=== PATIENT | female | born 1995 | race Caucasian/White ===

== ENCOUNTER 2017-09-01 14:20 | Emergency (ER) | payer SELFPAY ==
[2017-09-01] MEDS ORDERED: ALPRAZolam 0.25 MG TABLET PO ONE (14:45)
--- NOTE | 2017-09-01 15:11 | PHYS DOC ---
Past History Past Medical History: Anxiety Past Surgical History: No Surgical History Smoking: Cigarettes, Less than 1pk/day Alcohol Use: Occasionally Drug Use: None Adult General Chief Complaint Chief Complaint: shaking HPI HPI 22-year-old female patient complaining of shaking all over for the last 2 weeks that usually happens when she is awake, denies fever, nausea and vomiting, chest pain, shortness of breath, drinking alcohol or using drugs. Patient denies history of anxiety or taking any medication. Patient states she is currently is on her menses. Patient admitted to use medication belonged to a friend since early July and states she has been taking Percocet 20 mg daily for anxiety Review of Systems Review of Systems Constitutional: Denies fever or chills [] Eyes: Denies change in visual acuity, redness, or eye pain [] HENT: Denies nasal congestion or sore throat [] Respiratory: Denies cough or shortness of breath [] Cardiovascular: No additional information not addressed in HPI [] GI: Denies abdominal pain, nausea, vomiting, bloody stools or diarrhea [] : Denies dysuria or hematuria [] Musculoskeletal: Denies back pain or joint pain [] Integument: Denies rash or skin lesions [] Neurologic: Denies headache, focal weakness or sensory changes [] Endocrine: Denies polyuria or polydipsia [] All other systems were reviewed and found to be within normal limits, except as documented in this note. Current Medications Current Medications Current Medications Medications (Trade) Dose Ordered Sig/Alvaro Start Time Stop Time Status Last Admin Dose Admin Alprazolam (Xanax) 0.5 mg 1X ONCE 09/01/17 14:45 09/01/17 14:46 DC Allergies Allergies Allergies Coded Allergies Type Severity Reaction Last Updated Verified No Known Drug Allergies 09/01/17 No Physical Exam Physical Exam Constitutional: Well nourished, anxious, non-toxic appearance. [] HENT: Normocephalic, atraumatic, bilateral external ears normal, oropharynx moist, no oral exudates, nose normal. [] Eyes: PERRLA, EOMI, conjunctiva normal, no discharge. [] Neck: Normal range of motion, no tenderness, supple, no stridor. [] Cardiovascular: Mild tachycardia, no murmur [] Lungs & Thorax: Bilateral breath sounds clear to auscultation [] Abdomen: Bowel sounds normal, soft, no tenderness, no masses, no pulsatile masses. [] Skin: Warm, dry, no erythema, no rash. [] Back: No tenderness, no CVA tenderness. [] Extremities: No tenderness, no cyanosis, no clubbing, ROM intact, no edema. [] Neurologic: Alert and oriented X 3, normal motor function, normal sensory function, no focal deficits noted. [] Psychologic: Affect normal, judgement normal, mood normal,fine shaking of hands. [] Current Patient Data Vital Signs Vital Signs Date Time Temp Pulse Resp B/P (MAP) Pulse Ox O2 Delivery O2 Flow Rate FiO2 09/01/17 14:25 98.2 104 18 98 EKG EKG [] Radiology/Procedures Radiology/Procedures [] Course & Med Decision Making Course & Med Decision Making Evaluation of patient in ER showed 22-year-old female patient with complaining of shaking episode for 2 weeks while she is awake. Patient denied taking any medication but later on she admitted to taking Xanax and Zoloft pain on to somebody else. Patient was laying on the bed without any shaking but when talking about her shaking, she started to shake her hands. Patient had positive benzo in UDS. UA and test was negative. Patient instructed to follow with primary care physician regarding anxiety and avoid of taking other people medication Dragon Disclaimer Dragon Disclaimer This electronic medical record was generated, in whole or in part, using a voice recognition dictation system. Departure Departure: Impression: Primary Impression: Anxiety Additional Impressions: Tobacco abuse Tobacco abuse counseling Substance abuse Drug-seeking behavior Disposition: 01 HOME, SELF-CARE Condition: STABLE Referrals: FABIO HAQ MD Patient Instructions: Anxiety and Panic Attacks Additional Instructions: Do not take medication from other people Follow-up with a primary care physician 3-5 days for anxiety Quit smoking Problem Qualifiers YULIA PELLETIER MD Sep 01, 2017 15:11
[2017-09-01 15:39] LABS: BARBITURATES NEG (NEG); BENZODIAZEPINES POS (NEG); CANNABINOIDS NEG (NEG); COCAINE NEG (NEG); METHADONE NEG (NEG); OPIATES NEG (NEG); PHENCYCLIDINE NEG (NEG)
[2017-09-01 15:45] LABS: BACTERIA,URINE 0 /HPF (0-FEW); BILIRUBIN,URINE NEG (NEG); CLARITY,URINE HAZY; COLOR,URINE YELLOW; GLUCOSE,URINE NEG (NEG); NITRITE,URINE NEG (NEG); RBC,URINE OCC /HPF (0-2); SQUAMOUS EPITHELIAL CELL,UR MOD /LPF; UROBILINOGEN,URINE 4 mg/dL (0.2 mg/dL)
[2017-09-01 15:52] LABS: AMPHETAMINE/METHAMPHETAMINE NEG (NEG)
[2017-09-01 16:20] VITALS: BP 126/63
== END 2017-09-01 16:20 | disposition home or self-care (01) ==
LOC: ER 14:20
DX: F41.9 Anxiety disorder, unspecified (principal); F17.210 Nicotine dependence, cigarettes, uncomplicated; F19.10 Other psychoactive substance abuse, uncomplicated; Z76.5 Malingerer [conscious simulation]; Z71.6 Tobacco abuse counseling
CPT/HCPCS: 36415; 80307; 81001; 81025; 99284; G0479

== ENCOUNTER 2017-09-07 05:03 | Inpatient (IN) | payer SELFPAY ==
[2017-09-07] VITALS (8 sets, daily range): BP systolic 104–146; BP diastolic 66–92
[~2017-09-07] VITALS: Ht 160 cm; Wt 79.8 kg
--- NOTE | 2017-09-07 05:23 | PHYS DOC ---
Text Text Maricruz states that she does not have pain in her chest abdomen or head. She denies shortness of breath. She denies any symptoms at this time other than generally stating that she does not feel well. She is able to hold a normal conversation however intermittently this is interrupted by delusions and/or hallucinations. She states that she took a sleeping pill last night but does not remember the name. She continues to state that she is not suicidal or homicidal. She does not have a clear memory of what happened tonight/this morning. Well-nourished, well-developed female with no acute distress noted Pupils equal round and reactive to light, normal extraocular movement Small abrasion over the left forehead is hemostatic Tachycardic without murmur Sounds equal not diminished. No wheezing rhonchi or rales noted. No extra work of breathing noted Abdomen soft nontender. No masses palpated Moving all extremities equally. No sensory or motor defects noted No focal neurologic deficits noted. Cranial nerves intact. Normal mood and affect. Tangential thought process with delusions/hallucinations CT head/cervical spine - no acute abnormalities other than lymphadenopathy of the neck Labs were reviewed and she is found to have a lactic acid of 7.5 Dr. Heredia was contacted. Admission was recommended. She was transferred to the hospital in stable condition. (PAUL BORRERO MD) General Chief Complaint: fall head trauma Stated Complaint: SEIZURE Time Seen by MD: 05:12 Source: patient, EMS Exam Limitations: clinical condition Problems: (NORAH BROOKS DO) Time Seen by MD: 06:06 Problems: (PAUL BORRERO MD) History of Present Illness Initial Comments Patient is a 22-year-old female brought to the ED by EMS with a report of fall, head trauma, and possible seizure. EMS reports they were called because the patient's boyfriend found her lying by the toilet after apparently falling off of it while using the restroom. They report that there could've been seizure activity, and on their arrival the patient did appear to be postictal as she was very confused. They state that initially she was responsive to verbal stimuli only but unable to follow directions or verbalize. They state that it appears she must of hit her left parietal as she has bruising and a laceration or abrasion at the site. A c- collar was placed on the patient was brought to the emergency department for further evaluation. On arrival she is tachycardic with heart rate in the 110- 120 range otherwise vital signs are stable. Her mentation improves consistently , she is able to name the president and after explaining to her that it appears she may have had a seizure, she is in the hospital, we want to help her, she calms down and appears to be reassured. When asked she nods no to the question of whether she has any pain or difficulty breathing. Her communication is limited due to the c-collar however she has becoming more verbal. Additionally when asked if she took any intoxicating substances or attempted to hurt herself or end her life she replies that she did not. Tetanus status is unknown, patient was seen here in this ED 6 days ago on September 01 for anxiety complaints. At that time she had been taking a friend's Percocet for her anxiety , she was prescribed Xanax and discharged.. EMS brought an unlabeled bottle of pills they found with the patient, RN uses a computer database and identifies the medications as Zyrtec. Timing/Duration: unsure Severity: severe Modifying Factors: improves with other Associated Symptoms: other (NORAH BROOKS DO) Allergies: Coded Allergies: No Known Drug Allergies (Unverified , 09/01/17) Past Medical History Medical History: other (anxiety, drug-seeking behavior) Surgical History: no surgical history (NORAH BROOKS DO) Social History Smoker: cigarettes Alcohol: occasionally Drugs: other (history of taking a friend's Percocet, suspicion of drug-seeking behavior last ED visit) (NORAH BROOKS DO) Review of Systems All Other Systems: Reviewed and Negative (see history of present illness, patient denies any pain or trouble breathing otherwise complete review of systems not obtained as patient is C-collared and has difficulty speaking) (NORAH BROOKS DO) Physical Exam General Appearance: no apparent distress (left parietal abrasion versus laceration) Eyes: bilateral eye normal inspection, bilateral eye PERRL, bilateral eye EOMI Ear, Nose, Throat: hearing grossly normal, normal ENT inspection, normal pharynx Neck: non-tender, supple Respiratory: normal breath sounds, no respiratory distress Cardiovascular: normal peripheral pulses, tachycardia Gastrointestinal: non tender, soft Back: no CVA tenderness, no vertebral tenderness Extremities: normal range of motion, non-tender (bruising noted at bilateral antecubital areas consistent with blood draws or IVs) Neurologic/Psychiatric: computer assembler II-XII nml as tested, no motor/sensory deficits, alert, other (appears either postictal or postconcussive, appears to be oriented as tested) (NORAH BROOKS DO) Orders, Labs, Meds Full rainbow of labs, chest x-ray and head CT as well as EKG obtained. EKG: Sinus tachycardia 110 bpm, nonspecific T contour abnormalities with some baseline wander artifact appears to be normal for patient's age interpreted by me. 0552: I rechecked the patient upon her return from CT. She is much more alert, she states that the last thing she remembers was watching TV. She now complains that she hurts all over. Denies nausea trouble breathing or focal neurologic deficit, she is frustrated because she wants the c-collar and IV removed. (NORAH BROOKS DO) NORAH BROOKS DO Sep 07, 2017 05:23 PAUL BORRERO MD Sep 07, 2017 06:57
[2017-09-07] MEDS ORDERED: ONDANSETRON PF 4 MG/2 ML VIAL. IV ONE (05:30)
[2017-09-07 05:35] LABS: BASO % 0 % (0-3); EOS # 0.1 x10^3/uL (0.0-0.7); EOS % 1 % (0-3); HEMATOCRIT 42.3 % (36.0-47.0); LYMPH # 3.2 x10^3/uL (1.0-4.8); LYMPH % 30 % (24-48); MEAN CORPUSCULAR HEMOGLOBIN 29 pg (25-35); MEAN CORPUSCULAR HGB CONC 33 g/dL (31-37); MEAN CORPUSCULAR VOLUME 87 fL (79-100); MONO # 1.1 x10^3/uL (0.0-1.1); MONO % 11 % (0-9); NEUT # 6.2 x10^3uL (1.8-7.7); NEUT % 58 % (31-73); PLATELET COUNT 300 x10^3/uL (140-400); RED BLOOD COUNT 4.87 x10^6/uL (3.50-5.40); RED CELL DISTRIBUTION WIDTH 13.9 % (11.5-14.5); WHITE BLOOD COUNT 10.6 x10^3/uL (4.0-11.0)
[2017-09-07 05:50] LABS: BACTERIA,URINE FEW /HPF (0-FEW); BILIRUBIN,URINE NEG (NEG); CLARITY,URINE CLEAR; COLOR,URINE STRAW; GLUCOSE,URINE NEG (NEG); NITRITE,URINE NEG (NEG); RBC,URINE OCC /HPF (0-2); SQUAMOUS EPITHELIAL CELL,UR FEW /LPF; UROBILINOGEN,URINE 0.2 mg/dL (0.2 mg/dL); WBC,URINE RARE /HPF (0-4)
[2017-09-07] MEDS: IV NORMAL SALINE 1,000ML 1,000 ML IV SCH ×2 (05:50→09:24)
--- NOTE | 2017-09-07 05:50 | EKG ---
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
[2017-09-07 05:51] LABS: BARBITURATES NEG (NEG); BENZODIAZEPINES NEG (NEG); CANNABINOIDS NEG (NEG); COCAINE NEG (NEG); METHADONE NEG (NEG); OPIATES NEG (NEG); PHENCYCLIDINE NEG (NEG)
[2017-09-07 05:55] LABS: AMPHETAMINE/METHAMPHETAMINE NEG (NEG)
[2017-09-07 06:02] LABS: ALBUMIN 4.1 g/dL (3.4-5.0); CALCIUM 9.3 mg/dL (8.5-10.1); DIRECT BILIRUBIN 0.1 mg/dL (0.0-0.2); GFR 70.7; POTASSIUM 3.4 mmol/L (3.5-5.1); TOTAL BILIRUBIN 0.1 mg/dL (0.2-1.0); TOTAL PROTEIN 8.4 g/dL (6.4-8.2)
--- NOTE | 2017-09-07 06:41 | RAD ---
INDICATION: [id number] Seizure activity, confusion, abrasion on left upper forehead by hairline, unable to answer questions. No priors. COMPARISON: None. TECHNIQUE: Axial CT images obtained through the head and cervical spine without intravenous contrast. Coronal and sagittal reformats processed of cervical spine. One or more of the following individualized dose reduction techniques were utilized for this examination: 1. Automated exposure control; 2. Adjustment of the mA and/or kV according to patient size; 3. Use of iterative reconstruction technique. FINDINGS: Head: No intracranial hemorrhage. No midline shift. Basal cisterns patents. There is some prominence of the ventricles for the patient's age No acute osseous abnormality. Orbits and paranasal sinuses unremarkable. Cervical: No definite acute fracture. No significant malalignment. No evidence of perivertebral hematoma. There are some scattered mildly prominent lymph nodes within the neck. IMPRESSION: No acute intracranial hemorrhage. There is prominent size of the ventricles for the patient's age. This can be seen with mild hydrocephalus. No definite acute fracture or dislocation of the cervical spine. There are some scattered prominent appearing lymph nodes within the neck. Could be reactive in nature but if the patient has any history of neoplasm or risk factors follow-up could be obtained to ensure no growth. Electronically signed by: Lance Maguire MD (09/07/2017 6:37 AM) [facility]
--- NOTE | 2017-09-07 07:57 | RAD ---
PROCEDURE: CHEST AP ONLY CLINICAL INDICATION: seizure COMPARISON: None FINDINGS: No pneumothorax identified. Cardiac and mediastinal contours unremarkable. No pulmonary consolidation or acute airspace disease. Widening of the right sternoclavicular joint. IMPRESSION: No pulmonary consolidation or acute airspace disease. Widening of the right sternoclavicular joint. Correlate for focal tenderness if joint dislocation is suspected.
[2017-09-07] MEDS ORDERED: THIAMINE 100 MG in IV NORMAL SALINE 50ML 50 ML IV ONE ×4 (09:00)
[2017-09-07] MEDS: LORazepam 2 MG/ML VIAL IV PRN (11:40)
[2017-09-07] MEDS ORDERED: PHYSOSTIGMINE 2 MG/2 ML AMPUL. IV ONE (15:00)
[2017-09-07 15:20] LABS: ACETAMIN < 2.0 mcg/mL (10-30); SALIC 1.4 mg/dL (2.8-20.0)
--- NOTE | 2017-09-07 15:27 | EKG ---
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
[2017-09-07] MEDS: MVI, ADULT NO.4 WITH VIT K 10 ML, FOLIC ACID 1 MG, THIAMINE 100 MG in IV NORMAL SALINE ... IV SCH ×4 (15:47)
--- NOTE | 2017-09-07 16:01 | PDOC1 ---
HISTORY & PHYSICAL DATE OF ADMISSION: 09/07/17 HPI: HPI: Patient is a 22-year-old female brought to the ED by EMS with a report of fall, head trauma, and possible seizure. EMS reports they were called because the patient's boyfriend found her lying by the toilet after apparently falling off of it while using the restroom. They report that there could've been seizure activity, and on their arrival the patient did appear to be postictal as she was very confused. They state that initially she was responsive to verbal stimuli only but unable to follow directions or verbalize. They state that it appears she must of hit her left parietal as she has bruising and a laceration or abrasion at the site. A c- collar was placed on the patient was brought to the emergency department for further evaluation. On arrival she is tachycardic with heart rate in the 110- 120 range otherwise vital signs are stable. Her mentation improves consistently , she is able to name the president and after explaining to her that it appears she may have had a seizure, she is in the hospital, we want to help her, she calms down and appears to be reassured. When asked she nods no to the question of whether she has any pain or difficulty breathing. Her communication is limited due to the c-collar however she has becoming more verbal. Additionally when asked if she took any intoxicating substances or attempted to hurt herself or end her life she replies that she did not. Tetanus status is unknown, patient was seen here in this ED 6 days ago on September 01 for anxiety complaints. At that time she had been taking a friend's Percocet for her anxiety , she was prescribed Xanax and discharged.. EMS brought an unlabeled bottle of pills they found with the patient, RN uses a computer database and identifies the medications as Zyrtec.ABOVE NARRATIVE FROM ER. SHE STATES THAT SHE TOOK SOME SLEEPING PILLS. SHE WAS AT A GREEN PARTY LAST NIGHT AND THE BOYFRIEND DOES NOT KNOW WHAT SHE TOOK.SHE WAS SEEN IN THE ER A FEW DAYS AGO FOR ANXIETY. HER INITIAL DRUG SCREEN IS NEGATIVE. PROBLEMS: Problems Medical Problems: (1) Altered mental status-SUSPECT ANTICHOLINERGIC OD Status: Acute PAST MEDICAL HISTORY: PMH: ANXIETY PSH: UNKNOWN SH: SINGLE, SMOKING HISTORY UNABLE TO GET FROM PATIENT OR ETOH PFMH: UNKNOWN ALLERGIES: NONE Allergies Coded Allergies Type Severity Reaction Last Updated Verified No Known Drug Allergies 09/01/17 No MEDS: MEDICATIONS: PATIENT HAD A UNMARKED BOTTLE OF ZYRTEC WHICH WAS IDENTIFIED BY PHARMACOLOGY DATABASE Current Medications Medications (Trade) Dose Ordered Sig/Alvaro Start Time Stop Time Status Last Admin Dose Admin Lorazepam (Ativan) 0.5 mg PRN Q4HRS PRN 09/07/17 11:15 09/07/17 11:40 0.5 MG Multivitamins/ Minerals 10 ml/ Folic Acid 1 mg/ Thiamine HCl 100 mg/Sodium Chloride 1,011.2 ml @ 150 mls/ hr DAILY 09/07/17 15:00 Ondansetron HCl (Zofran) 4 mg 1X ONCE 09/07/17 05:30 09/07/17 05:43 DC 09/07/17 05:50 4 MG Physostigmine Salicylate (Antilirium) 1 mg 1X ONCE 09/07/17 15:00 09/07/17 15:01 DC Sodium Chloride 1,000 ml @ 1,000 mls/hr Q1H 09/07/17 05:30 09/07/17 06:29 DC 09/07/17 09:24 1,000 MLS/HR Thiamine HCl 100 mg/Sodium Chloride 51 ml @ 102 mls/hr 1X ONCE 09/07/17 09:00 09/07/17 09:29 DC 09/07/17 09:25 102 MLS/HR VITALS: Vital Signs Date Time Temp Pulse Resp B/P (MAP) Pulse Ox O2 Delivery O2 Flow Rate FiO2 09/07/17 14:30 98.4 90 20 104/78 (87) 99 Room Air LABS: Laboratory Tests Test 09/07/17 05:08 09/07/17 05:22 09/07/17 06:07 09/07/17 14:10 White Blood Count 10.6 x10^3/uL (4.0-11.0) Red Blood Count 4.87 x10^6/uL (3.50-5.40) Hemoglobin 14.0 g/dL (12.0-15.5) Hematocrit 42.3 % (36.0-47.0) Mean Corpuscular Volume 87 fL (79-100) Mean Corpuscular Hemoglobin 29 pg (25-35) Mean Corpuscular Hemoglobin Concent 33 g/dL (31-37) Red Cell Distribution Width 13.9 % (11.5-14.5) Platelet Count 300 x10^3/uL (140-400) Neutrophils (%) (Auto) 58 % (31-73) Lymphocytes (%) (Auto) 30 % (24-48) Monocytes (%) (Auto) 11 % (0-9) Eosinophils (%) (Auto) 1 % (0-3) Basophils (%) (Auto) 0 % (0-3) Neutrophils # (Auto) 6.2 x10^3uL (1.8-7.7) Lymphocytes # (Auto) 3.2 x10^3/uL (1.0-4.8) Monocytes # (Auto) 1.1 x10^3/uL (0.0-1.1) Eosinophils # (Auto) 0.1 x10^3/uL (0.0-0.7) Basophils # (Auto) 0.0 x10^3/uL (0.0-0.2) D-Dimer (Erin) 0.38 mg/L (0.00-0.50) Sodium Level 142 mmol/L (136-145) Potassium Level 3.4 mmol/L (3.5-5.1) Chloride Level 103 mmol/L (98-107) Carbon Dioxide Level 22 mmol/L (21-32) Anion Gap 17 (6-14) Blood Urea Nitrogen 13 mg/dL (7-20) Creatinine 1.0 mg/dL (0.6-1.0) Estimated GFR (Cockcroft-Gault) 70.7 Glucose Level 94 mg/dL (70-99) Lactic Acid Level 7.5 mmol/L (0.4-2.0) Calcium Level 9.3 mg/dL (8.5-10.1) Magnesium Level 2.1 mg/dL (1.8-2.4) Total Bilirubin 0.1 mg/dL (0.2-1.0) Direct Bilirubin 0.1 mg/dL (0.0-0.2) Aspartate Amino Transf (AST/SGOT) 14 U/L (15-37) Alanine Aminotransferase (ALT/SGPT) 23 U/L (14-59) Alkaline Phosphatase 37 U/L (46-116) Creatine Kinase 58 U/L (26-192) Troponin I Quantitative < 0.017 ng/mL (0-0.055) Total Protein 8.4 g/dL (6.4-8.2) Albumin 4.1 g/dL (3.4-5.0) Ethyl Alcohol Level < 10 mg/dL (0-10) Urine Collection Type U cath Urine Color Straw Urine Clarity Clear Urine pH 5.5 Urine Specific [place] <=1.005 Urine Protein Neg (NEG-TRACE) Urine Glucose (UA) Neg mg/dL (NEG) Urine Ketones (Stick) Neg mg/dL (NEG) Urine Blood Trace (NEG) Urine Nitrite Neg (NEG) Urine Bilirubin Neg (NEG) Urine Urobilinogen Dipstick 0.2 mg/dL (0.2 mg/dL) Urine Leukocyte Esterase Neg (NEG) Urine RBC Occ /HPF (0-2) Urine WBC Rare /HPF (0-4) Urine Squamous Epithelial Cells Few /LPF Urine Bacteria Few /HPF (0-FEW) Urine Opiates Screen Neg (NEG) Urine Methadone Screen Neg (NEG) Urine Barbiturates Neg (NEG) Urine Phencyclidine Screen Neg (NEG) Urine Amphetamine/Methamphetamine Neg (NEG) Urine Benzodiazepines Screen Neg (NEG) Urine Cocaine Screen Neg (NEG) Urine Cannabinoids Screen Neg (NEG) Urine Ethyl Alcohol Neg (NEG) Glucose (Fingerstick) 89 mg/dL (70-99) Maternal Serum HCG Beta Subunit < 1 mIU/mL (0-6) Salicylates Level 1.4 mg/dL (2.8-20.0) Salicylate Last Dose Date 09/06/17 Salicylate Last Dose Time 0000 Acetaminophen Level < 2.0 mcg/mL (10-30) Acetaminophen Last Dose Date 09/06/17 Acetaminophen Last Dose Time 0000 IMAGES: RESULTS: INITIAL UDS NEGATIVE. COMPREHENSIVE DRUG SCREEN PENDING FROM [facility]. TYLENOL AND ASA PENDING. ROS: UNABLE TO CONCENTRATE AND IS NOT ORIENTED TO ANSWER QUESTIONS. PHYSICAL EXAM: SOMEWHAT UNKEMPT 22 YEAR OLD IN MODERATE DISTRESS, SHE IS PARANOID, AGITATED AND RESTLESS. UNABLE TO KEEP STILL. pUPIL DILATED AT 4 CM , REACTIVE TO LIGHT., SEVERE ROTATORY LATERAL NYSTAGMUS, EARS NORMAL, TONGUE MOIST NECK SUPPLE,NO NUCAL RIGIDITY CV-TACHYCARDIC, RRR ABDOMEN SOFT , VERY SLIGHT MILDY DIFFUSELY TENDER, NO MASSES EXTREMETIES WITHOUT EDEMA NERUO/ PSYCH- VERY TWITCHY, AGITATED, AND RESTLESS, NO DROOLING, UNABLE TO KEEP STILL. INCONTINENT X2 , TREMULOUS, DID NOT APPRECIATE A BABINSKI. SPEECH IS INCOHERENT, CAN'T FOLLOW DIRECTIONS. pUPILS DILATED AND REACTIVE. NO DEFICITS NOTED, FACIAL MUSCLES SYMMETRICAL CT HEAD WITH QUESTION OF MILD HYDROCEPHALUS EKG: TACHYCARDIC LOW VOLTAGE, QRS NOW 48 WAS 138 VTE PROPHYLAXIS: VTE Pharmacological Prophylaxi: No ASSESSMENT/PLAN ASSESSMENT: 1.SUSPECT ANTICHOLINERGIC OD PLAN: SPOKE WITH POISON CONTROL. MAY GIVE PHYSOSTIGMINE IF QRS IS LESS THAN 100 AND TO GIVE SLOWLY OVER 5 MINUTES. A COMPREHENSIVE DRUG SCREEN HAS BEEN SENT TO [facility]. NEURO AND PSYCH CONSULT. SELVIN HOWARD DO Sep 07, 2017 16:01
--- NOTE | 2017-09-07 18:30 | PDOC ---
PROGRESS NOTES Diagnosis Problem Problems Medical Problems: (1) Altered mental status Status: Acute Assessment Problems Medical Problems: (1) Altered mental status Status: Acute Subjective UPDATE ON CONDITION: WAS GIVEN 1 MG OF PHYSOSTIGMINE FOR SUSPECTED ANTIHISTAMINE OD. SHE RESPONDED TO THE DRUG AND HER SYMPTOMS ABATED. AT THAT TIME SHE STATED SHE TOOK 20 OTC SLEEPING PILLS. SHE SAID SHE WANTED TO KILL HERSELF. SHE WAS FEELING HOPELESS. SHE ALSO POSSIBLY HAD A SHORT RUN OF TORSADES, HOWEVER THIS IS NOT LISTED A SIDE EFFECT OF THE PHYSO STIGMINE. SHE HAS BEEN SEEN BY DR. CABA AND PSYCH CONSULT IS PENDING. Objective Vital Signs Date Time Temp Pulse Resp B/P (MAP) Pulse Ox O2 Delivery O2 Flow Rate FiO2 09/07/17 17:15 98.9 90 24 116/72 (87) 100 Room Air Review of Relevant I have reviewed the following items blaine (where applicable) has been applied. Labs Laboratory Tests Test 09/07/17 05:08 09/07/17 05:22 09/07/17 06:07 09/07/17 14:10 White Blood Count 10.6 x10^3/uL (4.0-11.0) Red Blood Count 4.87 x10^6/uL (3.50-5.40) Hemoglobin 14.0 g/dL (12.0-15.5) Hematocrit 42.3 % (36.0-47.0) Mean Corpuscular Volume 87 fL (79-100) Mean Corpuscular Hemoglobin 29 pg (25-35) Mean Corpuscular Hemoglobin Concent 33 g/dL (31-37) Red Cell Distribution Width 13.9 % (11.5-14.5) Platelet Count 300 x10^3/uL (140-400) Neutrophils (%) (Auto) 58 % (31-73) Lymphocytes (%) (Auto) 30 % (24-48) Monocytes (%) (Auto) 11 % (0-9) Eosinophils (%) (Auto) 1 % (0-3) Basophils (%) (Auto) 0 % (0-3) Neutrophils # (Auto) 6.2 x10^3uL (1.8-7.7) Lymphocytes # (Auto) 3.2 x10^3/uL (1.0-4.8) Monocytes # (Auto) 1.1 x10^3/uL (0.0-1.1) Eosinophils # (Auto) 0.1 x10^3/uL (0.0-0.7) Basophils # (Auto) 0.0 x10^3/uL (0.0-0.2) D-Dimer (Erin) 0.38 mg/L (0.00-0.50) Sodium Level 142 mmol/L (136-145) Potassium Level 3.4 mmol/L (3.5-5.1) Chloride Level 103 mmol/L (98-107) Carbon Dioxide Level 22 mmol/L (21-32) Anion Gap 17 (6-14) Blood Urea Nitrogen 13 mg/dL (7-20) Creatinine 1.0 mg/dL (0.6-1.0) Estimated GFR (Cockcroft-Gault) 70.7 Glucose Level 94 mg/dL (70-99) Lactic Acid Level 7.5 mmol/L (0.4-2.0) Calcium Level 9.3 mg/dL (8.5-10.1) Magnesium Level 2.1 mg/dL (1.8-2.4) Total Bilirubin 0.1 mg/dL (0.2-1.0) Direct Bilirubin 0.1 mg/dL (0.0-0.2) Aspartate Amino Transf (AST/SGOT) 14 U/L (15-37) Alanine Aminotransferase (ALT/SGPT) 23 U/L (14-59) Alkaline Phosphatase 37 U/L (46-116) Creatine Kinase 58 U/L (26-192) Troponin I Quantitative < 0.017 ng/mL (0-0.055) Total Protein 8.4 g/dL (6.4-8.2) Albumin 4.1 g/dL (3.4-5.0) Ethyl Alcohol Level < 10 mg/dL (0-10) Urine Collection Type U cath Urine Color Straw Urine Clarity Clear Urine pH 5.5 Urine Specific [place] <=1.005 Urine Protein Neg (NEG-TRACE) Urine Glucose (UA) Neg mg/dL (NEG) Urine Ketones (Stick) Neg mg/dL (NEG) Urine Blood Trace (NEG) Urine Nitrite Neg (NEG) Urine Bilirubin Neg (NEG) Urine Urobilinogen Dipstick 0.2 mg/dL (0.2 mg/dL) Urine Leukocyte Esterase Neg (NEG) Urine RBC Occ /HPF (0-2) Urine WBC Rare /HPF (0-4) Urine Squamous Epithelial Cells Few /LPF Urine Bacteria Few /HPF (0-FEW) Urine Opiates Screen Neg (NEG) Urine Methadone Screen Neg (NEG) Urine Barbiturates Neg (NEG) Urine Phencyclidine Screen Neg (NEG) Urine Amphetamine/Methamphetamine Neg (NEG) Urine Benzodiazepines Screen Neg (NEG) Urine Cocaine Screen Neg (NEG) Urine Cannabinoids Screen Neg (NEG) Urine Ethyl Alcohol Neg (NEG) Glucose (Fingerstick) 89 mg/dL (70-99) Maternal Serum HCG Beta Subunit < 1 mIU/mL (0-6) Salicylates Level 1.4 mg/dL (2.8-20.0) Salicylate Last Dose Date 09/06/17 Salicylate Last Dose Time 0000 Acetaminophen Level < 2.0 mcg/mL (10-30) Acetaminophen Last Dose Date 09/06/17 Acetaminophen Last Dose Time 0000 Medications Current Medications Sodium Chloride 1,000 ml @ 1,000 mls/hr Q1H IV Last administered on 09/07/17at 09:24; Start 09/07/17 at 05:30; Stop 09/07/17 at 06:29; Status DC Ondansetron HCl (Zofran) 4 mg 1X ONCE IV Last administered on 09/07/17at 05:50 ; Start 09/07/17 at 05:30; Stop 09/07/17 at 05:43; Status DC Thiamine HCl 100 mg/Sodium Chloride 51 ml @ 102 mls/hr 1X ONCE IV ; Start 08/13 at 09:00; Stop 09/07/17 at 09:29; Status Cancel Thiamine HCl 100 mg/Sodium Chloride 51 ml @ 102 mls/hr 1X ONCE IV Last administered on 09/07/17at 09:25; Start 09/07/17 at 09:00; Stop 09/07/17 at 09:29 ; Status DC Lorazepam (Ativan) 0.5 mg PRN Q4HRS PRN IV ANXIETY / AGITATION Last administered on 09/07/17at 11:40; Start 09/07/17 at 11:15 Multivitamins/ Minerals 10 ml/ Folic Acid 1 mg/ Thiamine HCl 100 mg/Sodium Chloride 1,011.2 ml @ 150 mls/ hr DAILY IV Last administered on 09/07/17at 15: 47; Start 09/07/17 at 15:00 Physostigmine Salicylate (Antilirium) 1 mg 1X ONCE IV Last administered on 08/13at 17:12; Start 09/07/17 at 15:00; Stop 09/07/17 at 15:01; Status DC Vitals/I & O Vital Sign - Last 24 Hours 09/07/17 09/07/17 09/07/17 09/07/17 05:03 05:25 05:41 05:56 Temp 97.7 Pulse 116 111 110 102 Resp 15 25 15 15 B/P (MAP) 123/81 (95) 136/81 (99) 134/67 (89) Pulse Ox 96 97 97 98 O2 Delivery Room Air Room Air Room Air Room Air 09/07/17 09/07/17 09/07/17 09/07/17 08:10 08:54 10:12 12:48 Temp 97.6 98.4 Pulse 110 114 114 Resp 24 24 B/P (MAP) 146/92 (110) 146/85 (105) 124/83 (97) Pulse Ox 99 100 97 O2 Delivery Room Air Room Air Room Air 09/07/17 09/07/17 14:30 17:15 Temp 98.4 98.9 Pulse 90 90 Resp 20 24 B/P (MAP) 104/78 (87) 116/72 (87) Pulse Ox 99 100 O2 Delivery Room Air Room Air SELVIN HOWARD DO Sep 07, 2017 18:30
[2017-09-08] VITALS (9 sets, daily range): BP systolic 97–127; BP diastolic 58–86
[2017-09-08 07:40] LABS: BASO % 0 % (0-3); EOS # 0.1 x10^3/uL (0.0-0.7); EOS % 1 % (0-3); HEMATOCRIT 37.4 % (36.0-47.0); HEMOGLOBIN 12.7 g/dL (12.0-15.5); LYMPH # 1.8 x10^3/uL (1.0-4.8); LYMPH % 18 % (24-48); MEAN CORPUSCULAR HEMOGLOBIN 29 pg (25-35); MEAN CORPUSCULAR HGB CONC 34 g/dL (31-37); MEAN CORPUSCULAR VOLUME 86 fL (79-100); MONO # 1.1 x10^3/uL (0.0-1.1); MONO % 11 % (0-9); NEUT # 7.4 x10^3uL (1.8-7.7); NEUT % 71 % (31-73); PLATELET COUNT 284 x10^3/uL (140-400); RED BLOOD COUNT 4.34 x10^6/uL (3.50-5.40); RED CELL DISTRIBUTION WIDTH 14.1 % (11.5-14.5); WHITE BLOOD COUNT 10.5 x10^3/uL (4.0-11.0)
[2017-09-08 08:07] LABS: ALBUMIN 3.8 g/dL (3.4-5.0); CALCIUM 8.7 mg/dL (8.5-10.1); CREATININE 1.1 mg/dL (0.6-1.0); GFR 63.3; MAGNESIUM 1.9 mg/dL (1.8-2.4); POTASSIUM 3.2 mmol/L (3.5-5.1); TOTAL BILIRUBIN 0.5 mg/dL (0.2-1.0); TOTAL PROTEIN 7.5 g/dL (6.4-8.2)
[2017-09-08] MEDS: MVI, ADULT NO.4 WITH VIT K 10 ML, FOLIC ACID 1 MG, THIAMINE 100 MG in IV NORMAL SALINE ... IV SCH ×4 (09:00)
[2017-09-08] MEDS ORDERED: POTASSIUM CHLORIDE 20 MEQ TABLET.ER. PO ONE (09:30)
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
[2017-09-08] MEDS ORDERED: IOHEXOL 300 MG/ML 75 ML VIAL. IV ONE (13:00)
--- NOTE | 2017-09-08 16:06 | RAD ---
Examination: CT angiography chest History: History of shortness of breath on inspiration, chest pain COMPARISON: None available Technique: Axial CT angiographic images were performed with IV contrast. Coronal and sagittal 3-D MIP reformats are performed Repeat scanning was performed due to motion Exposure: One or more of the following individualized dose reduction techniques were utilized for this examination: 1. Automated exposure control 2. Adjustment of the mA and/or kV according to patient size 3. Use of iterative reconstruction technique FINDINGS: The central airways are patent. The heart size grossly appears unremarkable. The caliber of the aorta grossly appears unremarkable. There is no evidence of filling defect identified in the main pulmonary arterial trunk and right and left main pulmonary arteries. The evaluation of distal branch of the pulmonary arteries is limited. No radiologically significant mediastinal lymphadenopathy. The lungs are clear. Minimal pleural thickening identified in the bilateral lower lobes. The visualized liver, spleen, grossly appears unremarkable. No evidence of lytic bony destructive lesion. IMPRESSION: 1. No evidence of central pulmonary embolism. The evaluation of the distal lobar and segmental branches of the pulmonary artery is limited. 2. Minimal pleural thickening identified in the bilateral lower lobes lung, nonspecific. Electronically signed by: Valdemar Doevr MD (09/08/2017 4:03 PM) [facility]
--- NOTE | 2017-09-08 19:59 | PDOC ---
Exam Note: Arvin Note: Please also refer to the separate dictated note~for this date of service dictated separately.~Patient seen individually. Discussed the patient with Nursing staff reviewed the chart.~Reviewed interim history and current functioning. Reviewed vital signs,~Labs/ Radiology~and current medications noted below. Continue current treatment with the changes noted in the dictated addendum note Assessment: Vital Signs: Vital Signs Date Time Temp Pulse Resp B/P (MAP) Pulse Ox O2 Delivery O2 Flow Rate FiO2 09/08/17 19:09 98.4 96 18 114/69 (84) 98 Room Air I&O Intake and Output 09/08/17 07:00 Intake Total 2031.2 ml Output Total 1450 ml Balance 581.2 ml Intake Oral 620 ml IV Total 1411.2 ml Output Urine Total 1450 ml # Voids 3 Labs: Laboratory Tests Test 09/08/17 07:32 White Blood Count 10.5 x10^3/uL (4.0-11.0) Red Blood Count 4.34 x10^6/uL (3.50-5.40) Hemoglobin 12.7 g/dL (12.0-15.5) Hematocrit 37.4 % (36.0-47.0) Mean Corpuscular Volume 86 fL (79-100) Mean Corpuscular Hemoglobin 29 pg (25-35) Mean Corpuscular Hemoglobin Concent 34 g/dL (31-37) Red Cell Distribution Width 14.1 % (11.5-14.5) Platelet Count 284 x10^3/uL (140-400) Neutrophils (%) (Auto) 71 % (31-73) Lymphocytes (%) (Auto) 18 % (24-48) L Monocytes (%) (Auto) 11 % (0-9) H Eosinophils (%) (Auto) 1 % (0-3) Basophils (%) (Auto) 0 % (0-3) Neutrophils # (Auto) 7.4 x10^3uL (1.8-7.7) Lymphocytes # (Auto) 1.8 x10^3/uL (1.0-4.8) Monocytes # (Auto) 1.1 x10^3/uL (0.0-1.1) Eosinophils # (Auto) 0.1 x10^3/uL (0.0-0.7) Basophils # (Auto) 0.0 x10^3/uL (0.0-0.2) Sodium Level 143 mmol/L (136-145) Potassium Level 3.2 mmol/L (3.5-5.1) L Chloride Level 108 mmol/L (98-107) H Carbon Dioxide Level 24 mmol/L (21-32) Anion Gap 11 (6-14) Blood Urea Nitrogen 6 mg/dL (7-20) L Creatinine 1.1 mg/dL (0.6-1.0) H Estimated GFR (Cockcroft-Gault) 63.3 BUN/Creatinine Ratio 5 (6-20) L Glucose Level 100 mg/dL (70-99) H Calcium Level 8.7 mg/dL (8.5-10.1) Magnesium Level 1.9 mg/dL (1.8-2.4) Total Bilirubin 0.5 mg/dL (0.2-1.0) Aspartate Amino Transferase (AST) 19 U/L (15-37) Alanine Aminotransferase (ALT) 24 U/L (14-59) Alkaline Phosphatase 34 U/L (46-116) L Total Protein 7.5 g/dL (6.4-8.2) Albumin 3.8 g/dL (3.4-5.0) Albumin/Globulin Ratio 1.0 (1.0-1.7) Current Medications: Meds: Current Medications Sodium Chloride 1,000 ml @ 1,000 mls/hr Q1H IV Last administered on 09/07/17at 09:24; Start 09/07/17 at 05:30; Stop 09/07/17 at 06:29; Status DC Ondansetron HCl (Zofran) 4 mg 1X ONCE IV Last administered on 09/07/17at 05:50 ; Start 09/07/17 at 05:30; Stop 09/07/17 at 05:43; Status DC Thiamine HCl 100 mg/Sodium Chloride 51 ml @ 102 mls/hr 1X ONCE IV ; Start 08/13 at 09:00; Stop 09/07/17 at 09:29; Status Cancel Thiamine HCl 100 mg/Sodium Chloride 51 ml @ 102 mls/hr 1X ONCE IV Last administered on 09/07/17at 09:25; Start 09/07/17 at 09:00; Stop 09/07/17 at 09:29 ; Status DC Lorazepam (Ativan) 0.5 mg PRN Q4HRS PRN IV ANXIETY / AGITATION Last administered on 09/07/17at 11:40; Start 09/07/17 at 11:15 Multivitamins/ Minerals 10 ml/ Folic Acid 1 mg/ Thiamine HCl 100 mg/Sodium Chloride 1,011.2 ml @ 150 mls/ hr DAILY IV Last administered on 09/08/17at 09: 00; Start 09/07/17 at 15:00 Physostigmine Salicylate (Antilirium) 1 mg 1X ONCE IV Last administered on 08/13at 17:12; Start 09/07/17 at 15:00; Stop 09/07/17 at 15:01; Status DC Potassium Chloride (Klor-Con) 40 meq 1X ONCE PO Last administered on at 09:33; Start 09/08/17 at 09:30; Stop 09/08/17 at 09:31; Status DC Iohexol (Omnipaque 300 Mg/ml) 75 ml 1X ONCE IV Last administered on 09/08/17at 13:56; Start 09/08/17 at 13:00; Stop 09/08/17 at 13:01; Status DC Olanzapine (ZyPREXA ZYDIS) 2.5 mg PRN Q2HR PRN PO PSYCHOSIS; Start 09/08/17 at 17:30 Active Scripts Active Reported No Known Medications Prior To Admisstion (Info) Each 1 Each MC I have reviewed the current psychotropics carefully including drug interactions. Risk benefit ratio favors no change other than as noted in my dictated progress note. Diagnosis: Problems: (1) Substance abuse (2) Anxiety (3) Drug-seeking behavior (4) Altered mental status ZENA HILARIO MD Sep 08, 2017 19:59
[2017-09-08] MEDS: LORazepam 2 MG/ML VIAL IV PRN (22:07)
[2017-09-09 05:24] VITALS: BP 98/61
[2017-09-09 06:57] LABS: CALCIUM 9.1 mg/dL (8.5-10.1); GFR 70.7; POTASSIUM 3.5 mmol/L (3.5-5.1)
[2017-09-09] MEDS: MVI, ADULT NO.4 WITH VIT K 10 ML, FOLIC ACID 1 MG, THIAMINE 100 MG in IV NORMAL SALINE ... IV SCH ×4 (09:00)
--- NOTE | 2017-09-09 12:52 | DISCH ---
DISCHARGE INSTRUCTIONS-DC Condition on Discharge Condition on Discharge: Stable Problems: Activity after Discharge Activity Instructions for Disc: Activity as tolerated Diet after Discharge Diet after Discharge: Regular Contacting the DR. after DC Call your doctor for: If your condition worsens Follow-Up Follow up with: Intake [facility] Sunday Follow up with: Call 911 if worsening depression or recurrent thoughts of self- harm MALU PICKENS MD Sep 09, 2017 12:52
--- NOTE | 2017-09-09 13:02 | PDOC3 ---
Discharge Summary Discharge Summary Date of Admission Date of Admission: Sep 07, 2017 at 07:51 Admitting Diagnosis Intentional diphehydramine overdose Suicide attempt Hypokalemia Depression Date of Discharge: Sep 09, 2017 Discharge Diagnosis Intentional diphehydramine overdose Suicide attempt Hypokalemia Depression Laboratory Findings Laboratory Tests Test 09/07/17 05:08 09/07/17 05:22 09/07/17 06:07 09/07/17 08:46 White Blood Count 10.6 x10^3/uL (4.0-11.0) Red Blood Count 4.87 x10^6/uL (3.50-5.40) Hemoglobin 14.0 g/dL (12.0-15.5) Hematocrit 42.3 % (36.0-47.0) Mean Corpuscular Volume 87 fL (79-100) Mean Corpuscular Hemoglobin 29 pg (25-35) Mean Corpuscular Hemoglobin Concent 33 g/dL (31-37) Red Cell Distribution Width 13.9 % (11.5-14.5) Platelet Count 300 x10^3/uL (140-400) Neutrophils (%) (Auto) 58 % (31-73) Lymphocytes (%) (Auto) 30 % (24-48) Monocytes (%) (Auto) 11 % (0-9) Eosinophils (%) (Auto) 1 % (0-3) Basophils (%) (Auto) 0 % (0-3) Neutrophils # (Auto) 6.2 x10^3uL (1.8-7.7) Lymphocytes # (Auto) 3.2 x10^3/uL (1.0-4.8) Monocytes # (Auto) 1.1 x10^3/uL (0.0-1.1) Eosinophils # (Auto) 0.1 x10^3/uL (0.0-0.7) Basophils # (Auto) 0.0 x10^3/uL (0.0-0.2) D-Dimer (Erin) 0.38 mg/L (0.00-0.50) Sodium Level 142 mmol/L (136-145) Potassium Level 3.4 mmol/L (3.5-5.1) Chloride Level 103 mmol/L (98-107) Carbon Dioxide Level 22 mmol/L (21-32) Anion Gap 17 (6-14) Blood Urea Nitrogen 13 mg/dL (7-20) Creatinine 1.0 mg/dL (0.6-1.0) Estimated GFR (Cockcroft-Gault) 70.7 Glucose Level 94 mg/dL (70-99) Lactic Acid Level 7.5 mmol/L (0.4-2.0) Calcium Level 9.3 mg/dL (8.5-10.1) Magnesium Level 2.1 mg/dL (1.8-2.4) Total Bilirubin 0.1 mg/dL (0.2-1.0) Direct Bilirubin 0.1 mg/dL (0.0-0.2) Aspartate Amino Transf (AST/SGOT) 14 U/L (15-37) Alanine Aminotransferase (ALT/SGPT) 23 U/L (14-59) Alkaline Phosphatase 37 U/L (46-116) Creatine Kinase 58 U/L (26-192) Troponin I Quantitative < 0.017 ng/mL (0-0.055) Total Protein 8.4 g/dL (6.4-8.2) Albumin 4.1 g/dL (3.4-5.0) Ethyl Alcohol Level < 10 mg/dL (0-10) Urine Collection Type U cath Urine Color Straw Urine Clarity Clear Urine pH 5.5 Urine Specific [place] <=1.005 Urine Protein Neg (NEG-TRACE) Urine Glucose (UA) Neg mg/dL (NEG) Urine Ketones (Stick) Neg mg/dL (NEG) Urine Blood Trace (NEG) Urine Nitrite Neg (NEG) Urine Bilirubin Neg (NEG) Urine Urobilinogen Dipstick 0.2 mg/dL (0.2 mg/dL) Urine Leukocyte Esterase Neg (NEG) Urine RBC Occ /HPF (0-2) Urine WBC Rare /HPF (0-4) Urine Squamous Epithelial Cells Few /LPF Urine Bacteria Few /HPF (0-FEW) Urine Opiates Screen Neg (NEG) Urine Methadone Screen Neg (NEG) Urine Barbiturates Neg (NEG) Urine Phencyclidine Screen Neg (NEG) Urine Amphetamine/Methamphetamine Neg (NEG) Urine Benzodiazepines Screen Neg (NEG) Urine Cocaine Screen Neg (NEG) Urine Cannabinoids Screen Neg (NEG) Urine Ethyl Alcohol Neg (NEG) Glucose (Fingerstick) 89 mg/dL (70-99) Nasal Screen MRSA (PCR) Negative (Negative) Test 09/07/17 14:10 09/07/17 18:55 09/08/17 07:32 09/09/17 06:14 Maternal Serum HCG Beta Subunit < 1 mIU/mL (0-6) Salicylates Level 1.4 mg/dL (2.8-20.0) Salicylate Last Dose Date 09/06/17 Salicylate Last Dose Time 0000 Acetaminophen Level < 2.0 mcg/mL (10-30) Acetaminophen Last Dose Date 09/06/17 Acetaminophen Last Dose Time 0000 Lactic Acid Level 1.3 mmol/L (0.4-2.0) White Blood Count 10.5 x10^3/uL (4.0-11.0) Red Blood Count 4.34 x10^6/uL (3.50-5.40) Hemoglobin 12.7 g/dL (12.0-15.5) Hematocrit 37.4 % (36.0-47.0) Mean Corpuscular Volume 86 fL (79-100) Mean Corpuscular Hemoglobin 29 pg (25-35) Mean Corpuscular Hemoglobin Concent 34 g/dL (31-37) Red Cell Distribution Width 14.1 % (11.5-14.5) Platelet Count 284 x10^3/uL (140-400) Neutrophils (%) (Auto) 71 % (31-73) Lymphocytes (%) (Auto) 18 % (24-48) Monocytes (%) (Auto) 11 % (0-9) Eosinophils (%) (Auto) 1 % (0-3) Basophils (%) (Auto) 0 % (0-3) Neutrophils # (Auto) 7.4 x10^3uL (1.8-7.7) Lymphocytes # (Auto) 1.8 x10^3/uL (1.0-4.8) Monocytes # (Auto) 1.1 x10^3/uL (0.0-1.1) Eosinophils # (Auto) 0.1 x10^3/uL (0.0-0.7) Basophils # (Auto) 0.0 x10^3/uL (0.0-0.2) Sodium Level 143 mmol/L (136-145) 143 mmol/L (136-145) Potassium Level 3.2 mmol/L (3.5-5.1) 3.5 mmol/L (3.5-5.1) Chloride Level 108 mmol/L (98-107) 104 mmol/L (98-107) Carbon Dioxide Level 24 mmol/L (21-32) 27 mmol/L (21-32) Anion Gap 11 (6-14) 12 (6-14) Blood Urea Nitrogen 6 mg/dL (7-20) 10 mg/dL (7-20) Creatinine 1.1 mg/dL (0.6-1.0) 1.0 mg/dL (0.6-1.0) Estimated GFR (Cockcroft-Gault) 63.3 70.7 BUN/Creatinine Ratio 5 (6-20) Glucose Level 100 mg/dL (70-99) 87 mg/dL (70-99) Calcium Level 8.7 mg/dL (8.5-10.1) 9.1 mg/dL (8.5-10.1) Magnesium Level 1.9 mg/dL (1.8-2.4) Total Bilirubin 0.5 mg/dL (0.2-1.0) Aspartate Amino Transf (AST/SGOT) 19 U/L (15-37) Alanine Aminotransferase (ALT/SGPT) 24 U/L (14-59) Alkaline Phosphatase 34 U/L (46-116) Total Protein 7.5 g/dL (6.4-8.2) Albumin 3.8 g/dL (3.4-5.0) Albumin/Globulin Ratio 1.0 (1.0-1.7) Hospital Course Please see progress note dated 09/09 for further details. Pt admitted for intentional overdose of sleep aid presumed to be diphenhydramine. Treated w/ physostigmine, had excellent response. CTA done as pt had xray showing right SC space widened. CTA negative. Pt states on day of discharge that she is not suicidal. Pt [facility], who do not believe pt is in imminent danger. The plan is for her to go home with her friend Lyubov, and that she will be responsible for Maricruz until she is seen at the [facility] on Sunday. She also agrees that if she starts to have thoughts of self-harm again, she will call 911 and go to the ER. Pt is discharged, and we have not asked that she leave AMA as she was cleared by the [facility]. Condition at Discharge: Stable Home Meds Reported Medications Info (NO KNOWN MEDICATIONS PRIOR TO ADMISSTION) Each, 1 EACH , EACH 09/07/17 Inpatient Meds Current Medications Sodium Chloride 1,000 ml @ 1,000 mls/hr Q1H IV Last administered on 09/07/17at 09:24; Start 09/07/17 at 05:30; Stop 09/07/17 at 06:29; Status DC Ondansetron HCl (Zofran) 4 mg 1X ONCE IV Last administered on 09/07/17at 05:50 ; Start 09/07/17 at 05:30; Stop 09/07/17 at 05:43; Status DC Thiamine HCl 100 mg/Sodium Chloride 51 ml @ 102 mls/hr 1X ONCE IV ; Start 08/13 at 09:00; Stop 09/07/17 at 09:29; Status Cancel Thiamine HCl 100 mg/Sodium Chloride 51 ml @ 102 mls/hr 1X ONCE IV Last administered on 09/07/17at 09:25; Start 09/07/17 at 09:00; Stop 09/07/17 at 09:29 ; Status DC Lorazepam (Ativan) 0.5 mg PRN Q4HRS PRN IV ANXIETY / AGITATION Last administered on 09/08/17at 22:07; Start 09/07/17 at 11:15 Multivitamins/ Minerals 10 ml/ Folic Acid 1 mg/ Thiamine HCl 100 mg/Sodium Chloride 1,011.2 ml @ 150 mls/ hr DAILY IV Last administered on 09/08/17at 09: 00; Start 09/07/17 at 15:00 Physostigmine Salicylate (Antilirium) 1 mg 1X ONCE IV Last administered on 08/13at 17:12; Start 09/07/17 at 15:00; Stop 09/07/17 at 15:01; Status DC Potassium Chloride (Klor-Con) 40 meq 1X ONCE PO Last administered on at 09:33; Start 09/08/17 at 09:30; Stop 09/08/17 at 09:31; Status DC Iohexol (Omnipaque 300 Mg/ml) 75 ml 1X ONCE IV Last administered on 09/08/17at 13:56; Start 09/08/17 at 13:00; Stop 09/08/17 at 13:01; Status DC Olanzapine (ZyPREXA ZYDIS) 2.5 mg PRN Q2HR PRN PO PSYCHOSIS; Start 09/08/17 at 17:30 Active Scripts Active Reported No Known Medications Prior To Admisstion (Info) Each 1 Each Activity: as tolerated Diet: Regular Consulting Physician: ZENA HILARIO MD Consulting Speciality: Psychology Follow-up Plan See above. [facility] MALU PICKENS MD Sep 09, 2017 13:01
--- NOTE | 2017-09-09 16:03 | PDOC ---
PROGRESS NOTES Diagnosis Problem Problems Medical Problems: (1) Altered mental status Status: Acute Assessment Earlier today I discussed w/ pt and her "sister," who was on the phone, about my recommendation that she be hospitalized inpatient for treatment of depression and suicidal ideation. Pt had been seen by the [facility] earlier in the morning, and they had documented that she was still having thoughts of suicide, though no specific plan, and was agreeable to inpatient psychiatric care. By the time I spoke to her, pt stated that she was definitely not suicidal, and that she did not want to go to any inpatient facility. Her "sister" had agreed to take her in and "keep tabs on her" and make sure that she gets to the [facility] in the morning to begin outpatient treatment. When I asked pt what had changed since she took the pills the other night, she said "I realized I have too many things to live for, too many things I want to do with my life." She said "I want to go to college, become a nurse, and work with sick kids. I want to have kids myself." She said when she saw her niece yesterday "I realized how many people would be hurt if I killed myself." She says she absolutely does not want to go inpatient, states that the last time she was at [facility] she felt "it made things worse." She wants to try to work with a psychologist and psychiatrist. After speaking to pt and her "sister," the nurse contacted Dr. Narayanan, who stated that he was "ok with any decision Dr. Pickens makes" regarding her ability to be treated as an outpatient. At the time I spoke to pt I was under the impression that her "sister" was actually her sister, when in fact it is a friend. I spoke to the two of them again and asked Maricruz what she would do if she felt like killing herself again, she said "I would call 911 and go to the hospital. I don't want to ." I told her that I would discharge her against medical advice, but I would not call the police as I did not feel, at that time , that she was in imminent danger, and her "sister" was taking responsibility for making sure she would get where she needs to go. Not long after that discussion, pt's grandfather called the unit and spoke to the nurse. He stated that pt's "sister" was not her biological sister, and expressed a great deal of concern that pt would potentially be discharged. He offered to come to the hospital and plead with patient to go to inpatient hospital. After that, I spoke to risk management, who did not recommend that pt be discharged unless she left AMA and we called the police immediately to alert them that she was in danger to herself. She advised that we have pt re-evaluated by psychiatry or the [facility] to get a formal recommendation on whether pt should be held for inpatient psych care, or whether she must be allowed to f/u as an outpatient. I told pt and her "sister" that, and we contacted the [facility], who eventually arranged to re-evaluate the patient in person. We are awaiting the final recommendations before deciding on a disposition. Problems: Objective Vital Signs Date Time Temp Pulse Resp B/P (MAP) Pulse Ox O2 Delivery O2 Flow Rate FiO2 09/09/17 15:21 24 09/09/17 11:09 107 09/09/17 08:00 Room Air 09/09/17 05:24 98.5 98/61 (73) 100 Intake and Output 09/09/17 07:00 Intake Total 2091.2 ml Output Total 1100 ml Balance 991.2 ml Intake Oral 1080 ml IV Total 1011.2 ml Output Urine Total 1100 ml # Voids 2 Review of Relevant I have reviewed the following items blaine (where applicable) has been applied. Labs Laboratory Tests Test 09/07/17 18:55 09/08/17 07:32 09/09/17 06:14 Lactic Acid Level 1.3 mmol/L (0.4-2.0) White Blood Count 10.5 x10^3/uL (4.0-11.0) Red Blood Count 4.34 x10^6/uL (3.50-5.40) Hemoglobin 12.7 g/dL (12.0-15.5) Hematocrit 37.4 % (36.0-47.0) Mean Corpuscular Volume 86 fL (79-100) Mean Corpuscular Hemoglobin 29 pg (25-35) Mean Corpuscular Hemoglobin Concent 34 g/dL (31-37) Red Cell Distribution Width 14.1 % (11.5-14.5) Platelet Count 284 x10^3/uL (140-400) Neutrophils (%) (Auto) 71 % (31-73) Lymphocytes (%) (Auto) 18 % (24-48) Monocytes (%) (Auto) 11 % (0-9) Eosinophils (%) (Auto) 1 % (0-3) Basophils (%) (Auto) 0 % (0-3) Neutrophils # (Auto) 7.4 x10^3uL (1.8-7.7) Lymphocytes # (Auto) 1.8 x10^3/uL (1.0-4.8) Monocytes # (Auto) 1.1 x10^3/uL (0.0-1.1) Eosinophils # (Auto) 0.1 x10^3/uL (0.0-0.7) Basophils # (Auto) 0.0 x10^3/uL (0.0-0.2) Sodium Level 143 mmol/L (136-145) 143 mmol/L (136-145) Potassium Level 3.2 mmol/L (3.5-5.1) 3.5 mmol/L (3.5-5.1) Chloride Level 108 mmol/L (98-107) 104 mmol/L (98-107) Carbon Dioxide Level 24 mmol/L (21-32) 27 mmol/L (21-32) Anion Gap 11 (6-14) 12 (6-14) Blood Urea Nitrogen 6 mg/dL (7-20) 10 mg/dL (7-20) Creatinine 1.1 mg/dL (0.6-1.0) 1.0 mg/dL (0.6-1.0) Estimated GFR (Cockcroft-Gault) 63.3 70.7 BUN/Creatinine Ratio 5 (6-20) Glucose Level 100 mg/dL (70-99) 87 mg/dL (70-99) Calcium Level 8.7 mg/dL (8.5-10.1) 9.1 mg/dL (8.5-10.1) Magnesium Level 1.9 mg/dL (1.8-2.4) Total Bilirubin 0.5 mg/dL (0.2-1.0) Aspartate Amino Transf (AST/SGOT) 19 U/L (15-37) Alanine Aminotransferase (ALT/SGPT) 24 U/L (14-59) Alkaline Phosphatase 34 U/L (46-116) Total Protein 7.5 g/dL (6.4-8.2) Albumin 3.8 g/dL (3.4-5.0) Albumin/Globulin Ratio 1.0 (1.0-1.7) Medications Current Medications Sodium Chloride 1,000 ml @ 1,000 mls/hr Q1H IV Last administered on 09/07/17at 09:24; Start 09/07/17 at 05:30; Stop 09/07/17 at 06:29; Status DC Ondansetron HCl (Zofran) 4 mg 1X ONCE IV Last administered on 09/07/17at 05:50 ; Start 09/07/17 at 05:30; Stop 09/07/17 at 05:43; Status DC Thiamine HCl 100 mg/Sodium Chloride 51 ml @ 102 mls/hr 1X ONCE IV ; Start 08/13 at 09:00; Stop 09/07/17 at 09:29; Status Cancel Thiamine HCl 100 mg/Sodium Chloride 51 ml @ 102 mls/hr 1X ONCE IV Last administered on 09/07/17at 09:25; Start 09/07/17 at 09:00; Stop 09/07/17 at 09:29 ; Status DC Lorazepam (Ativan) 0.5 mg PRN Q4HRS PRN IV ANXIETY / AGITATION Last administered on 09/08/17at 22:07; Start 09/07/17 at 11:15 Multivitamins/ Minerals 10 ml/ Folic Acid 1 mg/ Thiamine HCl 100 mg/Sodium Chloride 1,011.2 ml @ 150 mls/ hr DAILY IV Last administered on 09/08/17at 09: 00; Start 09/07/17 at 15:00 Physostigmine Salicylate (Antilirium) 1 mg 1X ONCE IV Last administered on 08/13at 17:12; Start 09/07/17 at 15:00; Stop 09/07/17 at 15:01; Status DC Potassium Chloride (Klor-Con) 40 meq 1X ONCE PO Last administered on at 09:33; Start 09/08/17 at 09:30; Stop 09/08/17 at 09:31; Status DC Iohexol (Omnipaque 300 Mg/ml) 75 ml 1X ONCE IV Last administered on 09/08/17at 13:56; Start 09/08/17 at 13:00; Stop 09/08/17 at 13:01; Status DC Olanzapine (ZyPREXA ZYDIS) 2.5 mg PRN Q2HR PRN PO PSYCHOSIS; Start 09/08/17 at 17:30 Active Scripts Active Reported No Known Medications Prior To Admisstion (Info) Each 1 Each Vitals/I & O Vital Sign - Last 24 Hours 09/08/17 09/08/17 09/08/17 09/08/17 16:02 19:09 20:10 22:48 Temp 98.4 98.8 Pulse 82 96 101 Resp 18 22 B/P (MAP) 127/86 (100) 114/69 (84) 101/60 (74) Pulse Ox 98 99 O2 Delivery Room Air Room Air Room Air 09/09/17 09/09/17 09/09/17 09/09/17 03:48 05:24 08:00 11:09 Temp 98.5 Pulse 77 84 107 Resp 18 24 B/P (MAP) 98/61 (73) Pulse Ox 100 O2 Delivery Room Air Room Air Room Air 09/09/17 15:21 Resp 24 Intake and Output 09/08/17 09/08/17 09/09/17 15:00 23:00 07:00 Intake Total 360 ml 1131.2 ml 600 ml Output Total 1100 ml Balance -740 ml 1131.2 ml 600 ml MALU PICKENS MD Sep 09, 2017 16:03
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
== END 2017-09-09 17:39 | disposition home or self-care (01) | DRG 918 ==
LOC: ER 05:03 → ICU 07:51 → EEVIPCON 07:51 → ICU 09-08 16:55
PROVIDERS: ADMIT Family Medicine; ATTEND Family Medicine
DX: T45.0X2A Poisoning by antiallergic and antiemetic drugs, intentional self-harm, initial encounter (principal); R56.9 Unspecified convulsions; E87.6 Hypokalemia; F17.210 Nicotine dependence, cigarettes, uncomplicated; F32.9 Major depressive disorder, single episode, unspecified; F41.9 Anxiety disorder, unspecified; Z76.5 Malingerer [conscious simulation]; Z91.410 Personal history of adult physical and sexual abuse; Y92.89 Other specified places as the place of occurrence of the external cause; F19.10 Other psychoactive substance abuse, uncomplicated
CPT/HCPCS: 36415; 51701; 70450; 71045; 71275; 72125; 80048; 80053; 80076; 80307; 81001; 82550; 82947; 83605; 83735; 84484; 84702; 85025; 85379; 87641; 93005; 96374; G0480; J2060; J2405; Q9967; 99285-25; G0479; J7030

== ENCOUNTER 2017-09-12 15:48 | Emergency (ER) | payer SELFPAY ==
[~2017-09-12] VITALS: Ht 160 cm; Wt 76.6 kg
[2017-09-12] MEDS ORDERED: SODIUM BICARB ADULT 8.4% 50 MEQ/50 ML DISP.SYRIN. IV ONE (16:15)
[2017-09-12] MEDS ORDERED: IV RINGERS SOLUTION,LACTATED 1,000 ML IV ONE ×2 (16:15→16:30)
[2017-09-12 16:35] LABS: BASO % 1 % (0-3); EOS # 0.1 x10^3/uL (0.0-0.7); EOS % 1 % (0-3); HEMATOCRIT 41.6 % (36.0-47.0); HEMOGLOBIN 13.5 g/dL (12.0-15.5); LYMPH # 1.8 x10^3/uL (1.0-4.8); LYMPH % 27 % (24-48); MEAN CORPUSCULAR HEMOGLOBIN 29 pg (25-35); MEAN CORPUSCULAR HGB CONC 33 g/dL (31-37); MEAN CORPUSCULAR VOLUME 88 fL (79-100); MONO # 0.8 x10^3/uL (0.0-1.1); MONO % 11 % (0-9); NEUT # 4.2 x10^3uL (1.8-7.7); NEUT % 61 % (31-73); PLATELET COUNT 260 x10^3/uL (140-400); RED BLOOD COUNT 4.76 x10^6/uL (3.50-5.40); RED CELL DISTRIBUTION WIDTH 14.1 % (11.5-14.5); WHITE BLOOD COUNT 6.9 x10^3/uL (4.0-11.0)
--- NOTE | 2017-09-12 16:47 | EKG ---
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
--- NOTE | 2017-09-12 16:48 | RAD ---
CT HEAD WITHOUT CONTRAST09/12/2017 6:15 PM Indication: Confusion. Possible overdose. Comparison: CT of the head without contrast September 07, 2017. Procedure: Multidetector CT imaging of the head was performed without the administration of contrast. Findings: There is no evidence of acute intracranial hemorrhage. There is no evidence of acute territorial infarction. Please note that CT is limited for evaluation of acute ischemia. No mass effect or midline shift is identified . Prominent appearance of the ventricles and suprasellar cistern is stable. No acute abnormal extra-axial fluid collections are seen. No acute osseous changes are identified. Impression: 1. No evidence of acute intracranial abnormality or acute change from prior study 2. Prominent ventricles and suprasellar cistern for patient age. This appearance is similar to prior study. PQRS Compliance Statement: One or more of the following individualized dose reduction techniques were utilized for this examination: 1. Automated exposure control 2. Adjustment of the mA and/or kV according to patient size 3. Use of iterative reconstruction technique
[2017-09-12 16:49] LABS: ALBUMIN 3.7 g/dL (3.4-5.0); CALCIUM 9.2 mg/dL (8.5-10.1); DIRECT BILIRUBIN 0.1 mg/dL (0.0-0.2); GFR 70.7; MAGNESIUM 1.9 mg/dL (1.8-2.4); POTASSIUM 3.6 mmol/L (3.5-5.1); TOTAL BILIRUBIN 0.2 mg/dL (0.2-1.0); TOTAL PROTEIN 7.9 g/dL (6.4-8.2)
[2017-09-12 16:52] LABS: ACETAMIN < 2.0 mcg/mL (10-30); ETHANOL < 10 mg/dL (0-10)
[2017-09-12 16:55] LABS: PREG TEST PT QUAL NEGATIVE (NEG)
[2017-09-12] MEDS ORDERED: NORMAL SALINE IV ONE (17:00)
[2017-09-12] MEDS ORDERED: FOMEPIZOLE IV ONE (17:00)
[2017-09-12 17:04] LABS: BGAS PH 7.5 (7.35-7.45)
--- NOTE | 2017-09-12 17:09 | EKG ---
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
--- NOTE | 2017-09-12 17:10 | PHYS DOC ---
Past History Past Medical History: Anxiety, Asthma Past Surgical History: No Surgical History Smoking: Cigarettes, Less than 1pk/day Alcohol Use: Occasionally Drug Use: Benzodiazepine, Marijuana Adult General Chief Complaint Chief Complaint: OVERDOSE HPI HPI 22-year-old female presenting to the emergency department today after taking an unknown overdose with the intention of suicide today about 30 minutes prior to arrival. Upon human resources executive assistant arrival, they report that a blue liquid substance was flushed down the toilet. The patient and her bystanders stated that it was a "sleep aid" from "[employer]". Upon arrival the patient is confused without any recent head trauma. It is unknown how much of the medication was taken. Unfortunately no further history is available this time. Onset today. Location GI tract. Duration constant. No alleviating factors. Review of systems is negative for chest pain shortness of breath abdominal pain or vomiting. The patient denies neck stiffness. All other review of systems is negative unless otherwise noted in history of present illness. ED course: 22-year-old female with an unknown intoxication presenting to the emergency department confused with warm dry skin notably tachycardic with a prolongation or QRS and clonus upon plantar flexion of the lower extremity. I called poison control and discussed the case with them. They believe that the patient likely has an anticholinergic toxicity though they also recommended initiating one bolus of fomepizole as ethylene glycol/antifreeze can be blue in color prior to getting the osmolarity back. Repeat EKG performed which shows narrowing of the patient's QRS. I called for potential transfer however they do not have any ICU beds at this time. Head CT obtained which was unremarkable. IV fluids administered. I discussed the case with [facility] who also does not have any ICU beds at this time. Dr. Noguera our hospitalist here does not feel comfortable admitting the patient which I believe to be reasonable. I discussed the case with Dr. Case at [facility] who accepted the patient for transfer, further evaluation workup and care. All the labs thus far were communicated to him at this time. He is aware at this time that ethylene glycol toxicity is on the differential and the patient prophylactically initially received fomepizole. Again, poison control's following this case. Repeat EKG at 6 PM reviewed by myself shows that the patient continues to have a normal QRS. Dr. Heredia will be receiving any repeated ekgs at 7 and 8pm if the pt is still here prior to transfer. Review of Systems Review of Systems SEE ABOVE. Current Medications Current Medications Current Medications Medications (Trade) Dose Ordered Sig/Alvaro Start Time Stop Time Status Last Admin Dose Admin Fomepizole 1.2 gm/ Sodium Chloride 101.2 ml @ 200 mls/hr 1X ONCE 09/12/17 17:00 09/12/17 17:30 Lactated Ringer's 1,000 ml @ 1,000 mls/hr 1X ONCE 09/12/17 16:30 09/12/17 17:29 09/12/17 16:21 1,000 MLS/HR Sodium Bicarbonate 100 meq 1X ONCE 09/12/17 16:15 09/12/17 16:16 DC 09/12/17 16:18 100 MEQ Allergies Allergies Allergies Coded Allergies Type Severity Reaction Last Updated Verified No Known Drug Allergies 09/01/17 No Physical Exam Physical Exam SEE ABOVE Constitutional: Well developed, well nourished, patient is agitated with mild mydriasis. HENT: Normocephalic, atraumatic, bilateral external ears normal, oropharynx moist, no oral exudates, nose normal. [] Eyes: PERRLA, EOMI, conjunctiva normal, no discharge. [] Neck: Normal range of motion, no tenderness, supple, no stridor. Cardiovascular: Tachycardic rate with a regular rhythm. No murmur. Lungs & Thorax: Bilateral breath sounds clear to auscultation [] Abdomen: Bowel sounds normal, soft, no tenderness, no masses, no pulsatile masses. Skin: The patient's skin is warm to touch and dry. Back: No tenderness, no CVA tenderness. Extremities: No tenderness, no cyanosis, no clubbing, ROM intact, no edema. Patient has increased muscle tone with positive four beets of clonus. Neurologic: Alert and oriented X 3, normal motor function, normal sensory function, no focal deficits noted. [] Psychologic: Affect normal, judgement normal, mood normal. Current Patient Data Lab Results Laboratory Tests Test 09/12/17 16:04 White Blood Count 6.9 x10^3/uL (4.0-11.0) Red Blood Count 4.76 x10^6/uL (3.50-5.40) Hemoglobin 13.5 g/dL (12.0-15.5) Hematocrit 41.6 % (36.0-47.0) Mean Corpuscular Volume 88 fL (79-100) Mean Corpuscular Hemoglobin 29 pg (25-35) Mean Corpuscular Hemoglobin Concent 33 g/dL (31-37) Red Cell Distribution Width 14.1 % (11.5-14.5) Platelet Count 260 x10^3/uL (140-400) Neutrophils (%) (Auto) 61 % (31-73) Lymphocytes (%) (Auto) 27 % (24-48) Monocytes (%) (Auto) 11 % (0-9) H Eosinophils (%) (Auto) 1 % (0-3) Basophils (%) (Auto) 1 % (0-3) Neutrophils # (Auto) 4.2 x10^3uL (1.8-7.7) Lymphocytes # (Auto) 1.8 x10^3/uL (1.0-4.8) Monocytes # (Auto) 0.8 x10^3/uL (0.0-1.1) Eosinophils # (Auto) 0.1 x10^3/uL (0.0-0.7) Basophils # (Auto) 0.0 x10^3/uL (0.0-0.2) EKG EKG Initial EKG obtained at 1601 shows sinus rhythm with a tachycardic rate. QRS is wide at 112. Repeat EKG performed at 1650 she is narrowing of the QRS at 80 ms with narrowing of the QTC as well. This is after sodium bicarbonate administration. Both of these EKGs were compared to previous on August 242016. QRS widening is new when compared to previous.[] Reviewed by myself. Radiology/Procedures Radiology/Procedures [] Course & Med Decision Making Course & Med Decision Making Pertinent Labs and Imaging studies reviewed. (See chart for details) [] Dragon Disclaimer Dragon Disclaimer This electronic medical record was generated, in whole or in part, using a voice recognition dictation system. Departure Departure: Impression: Primary Impression: Substance abuse Additional Impression: Intentional diphenhydramine overdose Disposition: HOME, SELF-CARE Condition: IMPROVED Referrals: PCP,NO (PCP) Critical Care Time Critical care time was 50 minutes exclusive of procedures. Time was spent evaluating the patient, ordering the administration of medications, discussing with poison control, coordinating care of the patient, discussing with the admitting provider and documenting. Problem Qualifiers MACK ARGUETA MD Sep 12, 2017 17:10
[2017-09-12 17:32] LABS: CLARITY,URINE HAZY; COLOR,URINE STRAW
[2017-09-12 17:33] LABS: BACTERIA,URINE 0 /HPF (0-FEW); BILIRUBIN,URINE NEG (NEG); GLUCOSE,URINE NEG (NEG); NITRITE,URINE NEG (NEG); SQUAMOUS EPITHELIAL CELL,UR MOD /LPF; UROBILINOGEN,URINE 0.2 mg/dL (0.2 mg/dL)
--- NOTE | 2017-09-12 18:28 | EKG ---
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
--- NOTE | 2017-09-12 19:48 | EKG ---
[address] [address] Test Date: 2017-09-12 Test Time: 19:03:19 Pat Name: VENESSA ALCANTAR Department: Room: Gender: F Field Worker: CATALINO : 1995 Requested By: MACK ARGUETA Order Number: [id number] Reading MD: Napoleon Jo MD Measurements Intervals Gordon Rate: 94 P: 52 [place]: 118 QRS: 61 QRSD: 80 T: 30 QT: 408 QTc: 516 Interpretive Statements SINUS RHYTHM PROLONGED QT Electronically Signed On 09-13-2017 10:29:24 RUG CLEANING SUPERVISOR by Napoleon Jo MD
[2017-09-12 20:50] VITALS: BP 122/72
--- NOTE | 2017-09-13 06:15 | EKG ---
[address] [address] Test Date: 2017-09-12 Test Time: 20:10:20 Pat Name: VENESSA ALCANTAR Department: Room: Gender: F Docket Specialist: CATALINO : 1995 Requested By: MACK ARGUETA Order Number: [id number] Reading MD: Napoleon Jo MD Measurements Intervals Calvin Rate: 92 P: 0 IN: 92 QRS: -85 QRSD: 80 T: -4 QT: 410 QTc: 513 Interpretive Statements SINUS RHYTHM ABNORMAL LEFT AXIS DEVIATION LOW LIMB LEAD VOLTAGE QRS(T) CONTOUR ABNORMALITY CONSISTENT WITH INFERIOR INFARCT PROBABLY OLD NON-SPECIFIC ST/T CHANGES Electronically Signed On 09-13-2017 10:30:25 GEOTHERMAL HVAC TECHNICIAN by Napoleon Jo MD
== END 2017-09-12 21:29 | disposition home or self-care (01) ==
LOC: ER 15:48
DX: T45.0X2A Poisoning by antiallergic and antiemetic drugs, intentional self-harm, initial encounter (principal); F12.10 Cannabis abuse, uncomplicated; F19.10 Other psychoactive substance abuse, uncomplicated; F17.210 Nicotine dependence, cigarettes, uncomplicated; J45.909 Unspecified asthma, uncomplicated; F41.9 Anxiety disorder, unspecified; Y92.89 Other specified places as the place of occurrence of the external cause
CPT/HCPCS: 36415; 51702; 70450; 80048; 80076; 81001; 81025; 82803; 83605; 83690; 83735; 83930; 84484; 84703; 85025; 93005; 96361; 96365; 96375; G0480; J1451; J7120; 99291-25